=== PATIENT | male | born 1990 | race Caucasian/White ===

== ENCOUNTER → 2021-05-02 10:52 | Outpatient (BNVA) | payer MEDICAID, SELFPAY | PROVIDERS: Referring Provider Internal Medicine; Visit Provider Podiatrist Foot & Ankle Surgery | DX: M79.673 Pain in unspecified foot (principal); S92.412D Displaced fracture of proximal phalanx of left great toe, subsequent encounter for fracture with routine healing; X58.XXXD Exposure to other specified factors, subsequent encounter | CPT/HCPCS: 73630 ==

== ENCOUNTER → 2021-12-28 12:17 | Outpatient (BNVA) | payer MEDICAID, SELFPAY | PROVIDERS: Visit Provider Podiatrist Foot & Ankle Surgery | DX: L60.0 Ingrowing nail (principal); M79.671 Pain in right foot | CPT/HCPCS: 11750; A6219; A6446 ==

== ENCOUNTER → 2022-08-02 12:05 | Outpatient (BNVA) | payer MEDICAID, SELFPAY | PROVIDERS: PCP Nurse Practitioner Family; Visit Provider Nurse Practitioner Family | DX: E78.5 Hyperlipidemia, unspecified (principal) | CPT/HCPCS: 80053; 80061; 83036; 84443; 85025 ==

== ENCOUNTER → 2023-07-24 08:25 | Outpatient (BNVA) | payer MEDICARE, MEDICAID, SELFPAY | PROVIDERS: PCP Nurse Practitioner Family; Visit Provider Nurse Practitioner Family | DX: E78.5 Hyperlipidemia, unspecified (principal); J45.909 Unspecified asthma, uncomplicated; E11.9 Type 2 diabetes mellitus without complications | CPT/HCPCS: 80053; 80061; 85025 ==

== ENCOUNTER → 2024-06-06 11:52 | Outpatient (BNVA) | payer MEDICARE, MEDICAID, SELFPAY | PROVIDERS: PCP Nurse Practitioner Family; Visit Provider Nurse Practitioner Family | DX: K76.0 Fatty (change of) liver, not elsewhere classified (principal); E11.9 Type 2 diabetes mellitus without complications | CPT/HCPCS: 80053; 80061; 81000; 83036; 84443; 85025; 86705; 86706; 86709; 86803; 87340 ==

== ENCOUNTER 2024-06-19 08:42 | Outpatient (CLI) | payer MEDICARE, MEDICAID, SELFPAY ==
--- NOTE | 2024-06-19 09:00 | US_ITS ---
WS: [id number] RIGHT UPPER QUADRANT ULTRASOUND HISTORY: R79.89 - Other specified abnormal findings of blood chemi... COMPARISON: 05/29/2019 Liver: 16.0 cm in length. Limited evaluation of the liver due to body habitus. Increased echogenicity throughout the liver with hepatic steatosis. No mass identified or bile duct dilatation. Portal Vein: Normal hepatopetal flow with monophasic waveform. Gallbladder: Normally distended gallbladder with no stones or wall thickening. CBD: 0.3 cm, poorly visualized. Pancreas: Not visualized. Right kidney: 12.8 cm in length. Normal size and echogenicity. No hydronephrosis or mass. Aorta and IVC: Unremarkable abdominal aorta and IVC. No ascites. US/US liver [id number] IMPRESSION: 1. Difficult and limited RIGHT upper quadrant due to body habitus. 2. Gallbladder appears negative although limited visualization. 3. Poorly visualized liver is entirety. Hepatic steatosis noted.
== END 2024-06-19 08:43 | disposition home or self-care (01) ==
LOC: RAD 08:44
PROVIDERS: PCP Nurse Practitioner Family; Visit Provider Nurse Practitioner Family
DX: R79.89 Other specified abnormal findings of blood chemistry (principal); K76.0 Fatty (change of) liver, not elsewhere classified
CPT/HCPCS: 76705

== ENCOUNTER 2024-10-04 06:00 | Outpatient (RCR) | payer MEDICARE, MEDICAID, SELFPAY | END 2024-11-03 23:59 | disposition home or self-care (01) | LOC: TPT 06:00 | PROVIDERS: PCP Nurse Practitioner Family; Visit Provider Nurse Practitioner Family | DX: M25.561 Pain in right knee (principal) | CPT/HCPCS: 97161 ==

== ENCOUNTER 2024-11-04 05:00 | Outpatient (RCR) | payer MEDICARE, MEDICAID, SELFPAY | END 2024-12-03 23:59 | disposition home or self-care (01) | LOC: TPT 05:00 | PROVIDERS: PCP Nurse Practitioner Family; Visit Provider Nurse Practitioner Family | DX: M25.561 Pain in right knee (principal) | CPT/HCPCS: 97110 ==

== ENCOUNTER 2024-12-04 05:00 | Outpatient (RCR) | payer MEDICARE, MEDICAID, SELFPAY | END 2025-01-03 23:59 | disposition home or self-care (01) | LOC: TPT 05:00 | PROVIDERS: PCP Nurse Practitioner Family; Visit Provider Nurse Practitioner Family | DX: M25.561 Pain in right knee (principal) | CPT/HCPCS: 97110 ==

== ENCOUNTER 2025-01-07 14:01 | Outpatient (CLI) | payer OTHER, MEDICAID, SELFPAY ==
--- NOTE | 2025-01-07 14:30 | MR_ITS ---
WS: [id number] MRI RIGHT KNEE HISTORY: M25.561 - Pain in right knee COMPARISON: 10/07/2024 Anterior cruciate ligament: Partial tear of the superior ACL involving the posterior bundle. Posterior cruciate ligament: Cystic mass along the posterior surface of the PCL is likely a ganglion. Medial collateral ligament: Mild increased signal in the MCL. No tear. Posterior lateral corner structures: Intact. Medial menisci: Intact. Normal signal, size and shape. Lateral meniscus: Intact. Normal signal, size and shape. Extensor mechanism: Distal quadriceps tendon and patellar tendons are intact. Fluid and soft tissue: Small suprapatellar joint effusion. No Huber's cyst. Osseous and articular structures: Patellofemoral compartment: Mild narrowing of patellofemoral joint space. Mild chondromalacia involving the lateral facet. Subchondral cystic changes over the lateral patellar facet. Medial compartment: No significant narrowing. Mild thinning and fissuring of the cartilage along the weightbearing surface of the femoral condyle. No marrow edema. Lateral compartment: No significant narrowing. Very minimal fissuring of the cartilage. MR/MR knee RT wo con* [id number] IMPRESSION: 1. Suspect partial tear posterior bundle superior ACL. 2. PCL ganglion. 3. No meniscal tear. 4. Mild chondromalacia lateral patellar facet with subchondral cystic changes. 5. Very mild fissuring of the cartilage in the medial and lateral compartments . 6. Minimal MCL sprain.
== END 2025-01-07 14:02 | disposition home or self-care (01) ==
LOC: RAD 14:04
PROVIDERS: PCP Nurse Practitioner Family; Visit Provider Nurse Practitioner Family
DX: M22.41 Chondromalacia patellae, right knee (principal); R93.6 Abnormal findings on diagnostic imaging of limbs; M25.461 Effusion, right knee
CPT/HCPCS: 73721

== ENCOUNTER → 2025-01-27 08:00 | Outpatient (BNVA) | payer OTHER, MEDICAID, SELFPAY | PROVIDERS: PCP Nurse Practitioner Family; Visit Provider Orthopaedic Surgery | DX: S89.91XA Unspecified injury of right lower leg, initial encounter (principal); X58.XXXA Exposure to other specified factors, initial encounter; M25.561 Pain in right knee | CPT/HCPCS: 99204 ==

== ENCOUNTER → 2025-02-19 15:54 | Outpatient (BNVA) | payer OTHER, MEDICAID, SELFPAY | PROVIDERS: PCP Nurse Practitioner Family; Visit Provider Family Medicine | DX: Z01.818 Encounter for other preprocedural examination (principal) | CPT/HCPCS: 80053; 85025 ==

== ENCOUNTER 2025-03-03 08:05 | Day surgery (SDC) | payer OTHER, MEDICAID, SELFPAY ==
[2025-03-03] VITALS (12 sets, daily range): BP systolic 117–152; BP diastolic 57–98; PULSE 76–105; RESP 11–18; TEMP 36.1–36.7; O2SAT 97–100; BMI 40.4
--- NOTE | 2025-03-03 08:25 | ANES.PREANE2 ---
Pre-Anesthetic Assessment Height/Weight: Height 5 ft 11 in Weight 290 lb Preop Diagnosis: Knee pain Operation Date: 03/03/25 09:55 Proposed Procedures p RIGHT Knee Arthroscopy(Right) - Víctor Aguero MD s POSSIBLE Anterior ACL Reconstruction(Right) - Víctor Aguero MD Was Beta Liberty taken within 24 hours: N/A Was Clonidine taken within 24 hours: Yes Social No alcohol and No tobacco Exam alert, oriented x 3, clear to auscultation bilaterally and regular rate & rhythm Airway Submandibular: within normal limits Cervical ROM: within normal limits Mallampati: Class III Dentition: full Anesthetic Plan ASA status: 3 Anesthesia: General Other: No prior issues with anesthesia NPO since yesterday evening Patient comes from assisted, spoke with guardian on the phone who gave consent. Patient is ANO x 3 Type 2 diabetes, no insulin Patient is on clonidine for sleep GERD, controlled with Pepcid History of asthma Labs reviewed from 02/19/2025 acceptable for procedure Plan for general anesthesia Medications/Allergies Home Medications ?Medication ?Instructions ?Recorded ?Confirmed ?Last Taken ?Type quetiapine 400 mg tablet 400 mg PO BEDTIME 12/28/21 03/02/25 03/01/25 History topiramate 100 mg tablet 100 mg PO BID 12/28/21 03/02/25 03/02/25 History melatonin 10 mg capsule 10 mg PO .daily at 8pm 08/02/22 03/02/25 03/02/25 History ibuprofen 800 mg tablet 800 mg PO DAILY PRN pain #100 tabs 09/07/23 03/02/25 Unknown Rx acetaminophen 500 mg tablet 500 mg PO Q6H PRN fever or pain 02/26/24 03/02/25 Unknown Rx (Tylenol Extra Strength) #100 tabs albuterol sulfate 90 mcg/actuation See Rx Instructions .Route 02/26/24 03/02/25 Unknown Rx aerosol inhaler .COMPLEX #8.5 grams ondansetron 4 mg disintegrating 4 mg PO TID PRN nausea and 06/06/24 03/02/25 Unknown Rx tablet vomiting #30 tabs clonidine HCl 0.1 mg 0.1 mg PO BEDTIME 01/27/25 03/02/25 03/02/25 History tablet,extended release,12 hr hydroxyzine pamoate 25 mg capsule 25 mg PO TID PRN Anxiety 01/27/25 03/02/25 Unknown History trazodone 100 mg tablet 100 mg PO BEDTIME 01/27/25 03/02/25 03/02/25 History atorvastatin 40 mg tablet 40 mg PO DAILY 03/02/25 03/02/25 03/02/25 History docusate sodium 100 mg capsule 100 mg PO DAILY 03/02/25 03/02/25 03/02/25 History metformin 500 mg tablet,extended 500 mg PO BID 03/02/25 03/02/25 03/02/25 History release 24 hr Allergies Allergy/AdvReac Type Severity Reaction Status Date / Time No Known Allergies Allergy Verified 01/27/25 08:03 [facility] Anesthesia Medical History Asthma Head trauma Hyperlipidemia Fatty infiltration of liver Onychocryptosis Surgical History H/O anterior cruciate ligament surgery Social History Smoking and tobacco/nicotine status: never used tobacco/nicotine Quit status (tobacco/nicotine): not considering quitting Alcohol intake: former Substance/Drug Use: former Caregiver/support person: Yes Lives independently: No Household members: friend(s) Housing: House Marital status: Single Highest education level completed: High School Graduate service: No Current occupational status: unemployed
--- NOTE | 2025-03-03 09:21 | W.PM.OPSUD ---
Surgery/Procedure H&P Update DATE OF PROCEDURE: March 03, 2025 DATE H&P PERFORMED: 02/19/25 H&P UPDATE INFORMATION: I have reviewed H&P completed within last 30 days, I have examined patient prior to procedure and No changes to prior documentation PREOP DIAGNOSIS: Knee pain PLANNED PROCEDURE: Operation Date: 03/03/25 09:55 Proposed Procedures p RIGHT Knee Arthroscopy(Right) - Víctor Aguero MD s POSSIBLE Anterior ACL Reconstruction(Right) - Víctor Aguero MD
[2025-03-03] MEDS: ceFAZolin 2,000 mg SDV 2000 MG IVP (09:31)
[2025-03-03] MEDS: ceFAZolin 1,000 mg SDV 1000 MG IVP (09:31)
[2025-03-03] MEDS: BUPivacaine 0.5% INJ 30 mL INJECTION (11:52)
--- NOTE | 2025-03-03 11:53 | PM.OP ---
Operative Report Date of procedure: March 03, 2025 Surgeon: Víctor Aguero MD Procedure: Preoperative diagnosis: Internal derangement of the right knee Postoperative diagnosis: Torn anterior cruciate ligament right knee, torn anterior lateral meniscus Procedure: Diagnostic right knee arthroscopy with partial meniscectomy laterally, debridement of ACL stump, ACL reconstruction using autograft hamstrings Surgeon: Víctor Handley MD Tube Bending Machine Operator: ESA Guajardo's assistance was necessary with the positioning of the patient on the operative table, assistance during the procedure, wound closure, dressings placement and transfer the patient to the PACU Anesthesia: General EBL: 100 cc Indications: Rick is a 35-year-old white male who was goofing around approximately 3 to 4 months ago running and spending when he felt a pop in his right knee. Since that time he said continued pain problems and instability within his knee. Primary care had ordered an MRI which demonstrated a partial tear of his anterior cruciate ligament therefore the patient was referred to the orthopedic clinic for further evaluation and treatment. After initial evaluation is felt patient did have a injured ACL and therefore arthroscopic evaluation was offered to him. At that time a discussion was had with he and his band straightener about all options and the surgery including ACL reconstruction using his hamstring tendons. All risk benefits treatment alternatives were discussed with them and they are agreeable to this at this time. Procedure: After obtaining her consent patient was taken to the operating room placed on the operative table supine position general anesthetic administered. Once good anesthesia was achieved patient's right leg was placed in a leg berry after the foot the bed would been dropped. Left leg was padded appropriately. Right leg was then prepped and draped usual fashion. After surgical timeout standard anterior medial and lateral portals were made from an 11 blade. Camera cannulas placed through the lateral portal into her knee is undertaken. Posterior patella had some mild grade I chondromalacia over the central weightbearing surface. IT groove was clear. Medial gutter was clear. Medial compartment demonstrated again some softening of the cartilage on the distal femur but no breakdown of the articular cartilage. Meniscus was probed and found to be intact with no other abnormalities. Intercondylar notch was then explored finding that it was empty and there was no ACL except the stump off the tibial insertion. Lateral compartment demonstrated tearing of the anterior horn lateral meniscus this was debrided down to stable cartilage space with a mechanical shaver. There is a small amount of grade II chondromalacia of the central weightbearing surface of the lateral femoral condyle this too is debrided quickly. Attention was turned back to his intercondylar notch and using a thermal probe as well as mechanical shaver ACL stump was removed from the intercondylar notch. The notch had been found to be quite narrow. Therefore notchplasty was done at this point with a barrel bur to expose the notch more fully in order to place ACL graft. Cannulas were pulled out and set aside anterior approach to the pes anserinus was done with a #10 blade. Sharp dissection taken on down subcutaneous tissue electrocautery used hemostasis. Using Metzenbaum scissors and blunt sharp fashion dissection was taken on down to the gracilis and semitendinosus tendons could be identified and isolated. These were isolated with a right angle hemostat and then a Lupe drain placed around them to rowena them. By digital palpation as well as using Metzenbaum scissors in a blunt fashion there the fascial bands to these tendons were removed all the way up to the muscle bellies. Subsequently, in a stepwise fashion gracilis and semitendinosus were harvested. Excess muscle tissue was removed off the proximal ends of these. Whipstitch of 0 Vicryl was placed at the end of either these. #15 blade was then used to remove these from their insertion on the anterior tibia. Distal ends were freshened and also whipstitch of 0 Vicryl was placed through either these. Graft was then sized to size 9 grafting tube. It was then set aside on their moist cloth for later use. Cameras reinjured Troost to the knee and hematomas were evacuated. Subsequently a Arellano guide tibial aiming guide was then placed into the knee and position appropriately. Guidepin was placed within and confirmed to be in appropriate position. This is then reamed with a #[address] into the articular surface. Excess bone was removed with mechanical shaver. Also with small graspers. At this point size 10 femoral amine guide was placed on up into the posterior aspect the intercondylar notch and position appropriately. Guidepin placed up into the lateral femoral condyle in the posterior intercondylar notch. This was then visualized and confirmed to have adequate posterior wall. This was then reamed and a #9 reamer to a depth of 35 mm. Once this was done all guidepins and reamers were removed. Cannulas passed up to the tibial tunnel into the femoral tunnel and confirmed bony surfaces on all the chung of the tunnels. Attention was turned back towards the graft. Is placed in a perfect femoral locking device and tension. Watermark was placed on it. This is then passed up through the tibial tunnel and under direct visualization with the arthroscope directed in the femoral tunnel and implanted to the watermark. At this point locking device was engaged. Once this was achieved the guidepin was removed from the femoral side. Tension was pulled on the graft with the sutures and the ends demonstrating good fixation. Guidepin is placed up the tibial tunnel between the 2 sets the grafts. Tensioning handle was then applied to the sutures on the graft. Initial fixation and sleeve was placed up in the tibial tunnel between the 2 sets of the graft. Then a locking screw was placed on up this guidewire into the and tightened down until good fixation had been achieved. Direct visualization ACL demonstrated with intact Jackson's test under direct visualization demonstrates sturdy graft with no laxity. At this point excess graft was removed with #15 blade from the anterior tibia. Deep structures reapproximated with 0 Vicryl [id number] sutures. Subcutaneous tissue reapproximated with 0 Vicryl interrupted sutures. Skin was closed with a running Prolene suture of the harvest site and then [id number] for the portal sites. Wounds are clean and dry dressed with Xeroform gauze sterile gauze dressing Kerlix wrap and Zafar wrap for compression. Patient was waken transferred recovery in stable condition
[2025-03-03] MEDS: HYDROcodone-acetaminophen 5-325 mg Tablet 1 TAB PO (13:44)
--- NOTE | 2025-03-03 14:15 | ANE.PACU2 ---
Inpatient post-anesthesia follow up: Airway intact: Yes Vital signs: Temperature 98.0 F Pulse Rate 89 Respiratory Rate 16 Blood Pressure 140/86 Pulse Oximetry 99 Oxygen Delivery Me thod Room Air Oxygen Flow Rate Fraction of Inspir ed Oxygen Hydration adequate: Yes Nausea and vomiting: No Pain level: 1 Mental status: Baseline
== END 2025-03-03 14:15 | disposition home or self-care (01) ==
PROVIDERS: PCP Nurse Practitioner Family; Visit Provider Orthopaedic Surgery
PROC: (CPT 29870; principal; 2025-03-03 09:55)
PROC: (CPT 27407; 2025-03-03 09:55)
DX: M23.91 Unspecified internal derangement of right knee (principal); E11.9 Type 2 diabetes mellitus without complications; K21.9 Gastro-esophageal reflux disease without esophagitis; J45.909 Unspecified asthma, uncomplicated; Z79.84 Long term (current) use of oral hypoglycemic drugs; E78.5 Hyperlipidemia, unspecified
CPT/HCPCS: 27430; 29881; C1713; J0690; J1100; J1171; J1885; J2250; J2405; J2704; J3010; J3490; J7030; J9999

== ENCOUNTER 2025-03-06 05:00 | Outpatient (RCR) | payer OTHER, MEDICAID, SELFPAY | END 2025-04-05 23:59 | disposition home or self-care (01) | LOC: TPT 05:00 | PROVIDERS: PCP Nurse Practitioner Family; Visit Provider Orthopaedic Surgery | DX: Z98.890 Other specified postprocedural states (principal) | CPT/HCPCS: 97161 ==

== ENCOUNTER 2025-03-10 17:57 | Emergency (ER) | payer OTHER, MEDICAID, SELFPAY ==
[2025-03-10 18:07] VITALS: BP 122/73; PULSE 96; RESP 16; TEMP 36.9; O2SAT 100
--- NOTE | 2025-03-10 18:37 | USR_ITS ---
PROCEDURE INFORMATION: Exam: US Duplex Right Lower Extremity Veins, Limited Exam date and time: 03/10/2025 7:21 PM Age: 35 years old Clinical indication: Pain; Leg, lower; Prior surgery; Surgery date: 3-7 days post-operative; Surgery type: Right knee surgery for tendon repair; Additional info: Swelling TECHNIQUE: Imaging protocol: Real-time duplex ultrasound of the right extremity with 2-D chew scale, color Doppler flow and spectral waveform analysis including responses to compression and other maneuvers (when performed) with image documentation. Limited exam was focused on the right lower extremity veins. COMPARISON: MR knee RT wo con* [id number] 01/07/2025 2:43 PM FINDINGS: Right deep veins: All imaged right lower extremity deep veins demonstrate normal flow, compressibility, and/or augmentation without evidence of deep venous thrombosis. Superficial veins: Greater saphenous vein at the saphenofemoral junction is patent without thrombus. Soft tissues: Unremarkable. US/[place] [id number] IMPRESSION: No evidence of deep vein thrombosis.
--- NOTE | 2025-03-10 18:38 | ED_ITS ---
HPI - Extremity Problem General: Chief complaint: Extremity Injury, Lower Stated complaint: R knee pain, 1 week post op Time Seen by Provider: 03/10/25 18:30 History of Present Illness: Patient comes in with worsening swelling and pain in his right lower leg. States that he had ACL surgery a week ago. States he has been icing it and taking his pain medication but that the swelling and pain in his posterior right calf seems to be getting worse. On physical exam he does have significant swelling of his right lower leg with no pitting edema. No erythema or signs of infection, the surgical wounds are clean dry and intact. Will check ultrasound, treat pain with 30 mg of IM Toradol, and reassess. Related Data Home Medications ?Medication ?Instructions ?Recorded ?Confirmed quetiapine 400 mg tablet 400 mg PO BEDTIME 12/28/21 0 03/02/25 topiramate 100 mg tablet 100 mg PO BID 12/28/2103/02 melatonin 10 mg capsule 10 mg PO .daily at 8pm 08/0203/02/25 clonidine HCl 0.1 mg 0.1 mg PO BEDTIME 01/27/25 0 03/02/25 tablet,extended release,12 hr hydroxyzine pamoate 25 mg capsule 25 mg PO TID PRN Anx iety 01/27/25 03/03/25 trazodone 100 mg tablet 100 mg PO BEDTIME 01/27/25 0 03/02/25 atorvastatin 40 mg tablet 40 mg PO DAILY 03/02/2502/04 docusate sodium 100 mg capsule 100 mg PO DAILY 5 03/02/25 metformin 500 mg tablet,extended 500 mg PO BID 5 03/02/25 release 24 hr Previous Rx's ?Medication ?Instructions ?Recorded ibuprofen 800 mg tablet 800 mg PO DAILY PRN pain #10 0 tabs 09/07/23 acetaminophen 500 mg tablet 500 mg PO Q6H PRN fever or pain 02/26/24 (Tylenol Extra Strength) #100 tabs albuterol sulfate 90 mcg/actuation See Rx Instructions .Route 02/26/24 aerosol inhaler .COMPLEX #8.5 grams ondansetron 4 mg disintegrating 4 mg PO TID PRN nausea and 06/06/24 tablet vomiting #30 tabs hydrocodone 5 mg-acetaminophen 325 1 tab PO Q6H PRN pa in #30 tabs 03/03/25 mg tablet Allergies Allergy/AdvReac Type Severity Reaction Status Date / Time No Known Allergies Allergy Verified 01/27/25 08:03 Review of Systems Musc: Reports: other (Leg swelling, leg pain) [facility] PFSH: Medical History (Updated 03/10/25 @ 20:03 by Berhane Villanueva MD) Asthma Head trauma Hyperlipidemia Fatty infiltration of liver Onychocryptosis Surgical History H/O anterior cruciate ligament surgery Social History Smoking and tobacco/nicotine status: never used tobacco/nicotine Quit status (tobacco/nicotine): not considering quitting Alcohol intake: former Substance/Drug Use: former Caregiver/support person: Yes Lives independently: No Household members: friend(s) Housing: House Marital status: Single Highest education level completed: High School Graduate service: No Current occupational status: unemployed Physical Exam HENMT: COMMON NORMALS: normocephalic and atraumatic HEAD & SCALP: normocephalic and atraumatic Neck/C-Spine: COMMON NORMALS: full ROM and supple Resp: COMMON NORMALS: normal respiratory effort, No retractions and No use of accessory muscles Cardio: COMMON NORMALS: regular rate RATE: regular rate Extremity: NARRATIVE EXTREMITY EXAM: Swelling, bruising, tenderness to palpation of the right lower leg, surgical wounds are clean dry and intact, no erythema or signs of infection Course Vital Signs: Vital signs: Vital Signs Temperature 98.4 F 03/10/25 18:07 Pulse Rate 92 03/10/25 19:03 Respiratory Rate 16 03/10/25 18:07 Blood Pressure 131/91 03/10/25 19:03 Pulse Oximetry 98 03/10/25 19:03 Oxygen Delivery Me thod Room Air 03/10/25 19:03 MDM - Extremity (Nontraumatic) Medical Decision Making On reassessment I talked with the patient about his test results. His ultrasound shows no acute blood clot. I encouraged him to continue anti- inflammatories, elevation, ice. Will discharge at this time with precautions return for worsening or changing symptoms. All radiology interpretation(s) finalized by discharge Discharge Plan Discharge Patient Disposition: Home Clinical Impression: Post-op pain Condition: Stable Prescriptions: No Action quetiapine 400 mg tablet 400 mg PO BEDTIME topiramate 100 mg tablet 100 mg PO BID acetaminophen [Tylenol Extra Strength] 500 mg tablet 500 mg PO Q6H PRN (Reason: fever or pain) Qty: 100 5RF albuterol sulfate 90 mcg/actuation HFA aerosol inhaler See Rx Instructions .ROUTE .COMPLEX Qty: 8.5 5RF Dose Instruction: inhale 2 puffs BY MOUTH every 6 hours As Needed FOR shortness of breath OR wheezing Rx Instructions: inhale 2 puffs BY MOUTH every 6 hours As Needed FOR shortness of breath OR wheezing trazodone 100 mg tablet 100 mg PO BEDTIME hydroxyzine pamoate 25 mg capsule 25 mg PO TID PRN (Reason: Anxiety) clonidine HCl 0.1 mg tablet extended release 12 hr 0.1 mg PO BEDTIME melatonin 10 mg capsule 10 mg PO .daily at 8pm ondansetron 4 mg tablet,disintegrating 4 mg PO TID PRN (Reason: nausea and vomiting) Qty: 30 0RF ibuprofen 800 mg tablet 800 mg PO DAILY PRN (Reason: pain) Qty: 100 5RF atorvastatin 40 mg tablet 40 mg PO DAILY Rx Instructions: TAKE 1 TABLET BY MOUTH EVERY DAY docusate sodium 100 mg capsule 100 mg PO DAILY Rx Instructions: TAKE ONE CAPSULE BY MOUTH EVERY DAY metformin 500 mg tablet extended release 24 hr 500 mg PO BID Rx Instructions: TAKE ONE TABLET BY MOUTH TWICE DAILY hydrocodone-acetaminophen 5-325 mg tablet 1 tab PO Q6H PRN (Reason: pain) Qty: 30 0RF Discharge Orders: Discharge ED (Routine); Ordered 03/10/25 Ordered By: Berhane Villanueva Referrals: Tonya Kent FNP [Primary Care Provider, Family Practice] Patient Instructions: Opioid Safety, Pain Management, Patient Portal & Marty Instructions Print Language: Burundian Coding Level of Care Code ED Log Scaler for Wilder Pimentel
[2025-03-10 19:03] VITALS: BP 131/91; PULSE 92; O2SAT 98
[2025-03-10 20:16] VITALS: BP 117/80; PULSE 85; O2SAT 98
== END 2025-03-10 20:41 | disposition home or self-care (01) ==
PROVIDERS: Emergency Provider Emergency Medicine; PCP Nurse Practitioner Family
DX: G89.18 Other acute postprocedural pain (principal); Z79.84 Long term (current) use of oral hypoglycemic drugs; E78.5 Hyperlipidemia, unspecified
CPT/HCPCS: 93971; 96372; 99284; J1885

== ENCOUNTER → 2025-03-17 11:16 | Outpatient (BNVA) | payer OTHER, MEDICAID, SELFPAY | PROVIDERS: PCP Nurse Practitioner Family; Visit Provider Orthopaedic Surgery | DX: Z98.890 Other specified postprocedural states (principal) | CPT/HCPCS: 99024 ==

== ENCOUNTER 2025-04-06 05:00 | Outpatient (RCR) | payer OTHER, MEDICAID, SELFPAY | END 2025-05-05 23:59 | disposition home or self-care (01) | LOC: TPT 05:00 | PROVIDERS: PCP Nurse Practitioner Family; Visit Provider Orthopaedic Surgery | DX: S83.511D Sprain of anterior cruciate ligament of right knee, subsequent encounter (principal); X58.XXXD Exposure to other specified factors, subsequent encounter | CPT/HCPCS: 97110 ==

== ENCOUNTER → 2025-04-21 10:52 | Outpatient (BNVA) | payer OTHER, MEDICAID, SELFPAY | PROVIDERS: PCP Nurse Practitioner Family; Visit Provider Orthopaedic Surgery | DX: Z98.890 Other specified postprocedural states (principal) | CPT/HCPCS: 99024 ==

== ENCOUNTER → 2025-04-23 11:40 | Outpatient (BNVA) | payer OTHER, MEDICAID, SELFPAY | PROVIDERS: PCP Nurse Practitioner Family; Visit Provider Nurse Practitioner Family | DX: E11.9 Type 2 diabetes mellitus without complications (principal); K76.0 Fatty (change of) liver, not elsewhere classified | CPT/HCPCS: 80053; 80061; 83036; 85025 ==

== ENCOUNTER → 2025-04-29 13:52 | Outpatient (BNVA) | payer OTHER, MEDICAID, SELFPAY | PROVIDERS: PCP Nurse Practitioner Family; Visit Provider Nurse Practitioner Family | DX: M25.562 Pain in left knee (principal); M96.89 Other intraoperative and postprocedural complications and disorders of the musculoskeletal system; F17.290 Nicotine dependence, other tobacco product, uncomplicated | CPT/HCPCS: 73562 ==

== ENCOUNTER 2025-05-08 10:00 | Outpatient (RCR) | payer OTHER, MEDICAID, SELFPAY | END 2025-06-05 23:59 | disposition home or self-care (01) | LOC: TPT 10:00 | PROVIDERS: PCP Nurse Practitioner Family; Visit Provider Orthopaedic Surgery | DX: Z98.890 Other specified postprocedural states (principal) | CPT/HCPCS: 97110 ==

== ENCOUNTER 2025-06-01 10:23 | Outpatient (CLI) | payer OTHER, MEDICAID, SELFPAY ==
--- NOTE | 2025-06-01 11:00 | MR_ITS ---
WS: [id number] MRI LEFT KNEE NONCONTRAST TECHNIQUE: Axial PD, coronal PD fat sat, coronal PD, sagittal PD, and sagittal PD fat-sat images obtained. CLINICAL INFORMATION: R52 - Pain, unspecified COMPARISON: MRI 2007 FINDINGS: Evidence of prior ACL repair. Increased T2 signal in the ACL graft suspicious for partial tear. Recommend correlation for ACL integrity. Graft appears somewhat diminutive and irregular. Some images are degraded due to susceptibility artifact from hardware. PCL appears intact. Grade II chondromalacia patella. Medial and lateral patellar retinaculum appear intact. Small lobulated popliteal cyst measuring 1.9 x 0.8 cm. Medial and lateral collateral ligaments appear intact. Blunting of the medial meniscus likely due to prior partial meniscectomy. Lateral meniscus appears intact. Normal bone marrow signal in the femoral condyle and tibial plateau. MR/MR knee LT wo con* [id number] IMPRESSION: Some images degraded by susceptibility artifact from prior ACL toya nstruction 1. Prior ACL reconstruction. Increased T2 signal along the ACL graft which amara ears diminutive with irregularity. Recommend correlation for partial tear. Nor mal PCL. 2. Narrowing of the medial joint compartment presumably due to prior meniscect audrey. 3. Medial and lateral collateral ligaments appear intact. 4. Grade II chondromalacia patella. 5. Small lobulated popliteal cyst. Outbridge grading: grade II: blister-like swelling/fraying of articular cartila ge extending to surface
== END 2025-06-01 10:24 | disposition home or self-care (01) ==
LOC: RAD 10:24
PROVIDERS: PCP Nurse Practitioner Family; Visit Provider Nurse Practitioner Family
DX: R52 Pain, unspecified (principal)
CPT/HCPCS: 73721

== ENCOUNTER → 2025-06-02 09:49 | Outpatient (BNVA) | payer OTHER, MEDICAID, SELFPAY | PROVIDERS: PCP Nurse Practitioner Family; Visit Provider Orthopaedic Surgery | DX: Z98.890 Other specified postprocedural states (principal) | CPT/HCPCS: 99024 ==

== ENCOUNTER 2025-06-25 09:05 | Outpatient (RCR) | payer OTHER, MEDICAID, SELFPAY | END 2025-07-05 23:59 | disposition home or self-care (01) | LOC: TPT 09:05 | PROVIDERS: PCP Nurse Practitioner Family; Visit Provider Orthopaedic Surgery | DX: S83.511D Sprain of anterior cruciate ligament of right knee, subsequent encounter (principal); X58.XXXD Exposure to other specified factors, subsequent encounter | CPT/HCPCS: 97110 ==

== ENCOUNTER 2025-06-25 10:17 | Outpatient (RCR) | payer OTHER, MEDICAID, SELFPAY | END 2025-07-05 23:59 | disposition home or self-care (01) | LOC: TPT 10:17 | PROVIDERS: PCP Nurse Practitioner Family; Visit Provider Nurse Practitioner Family | DX: M25.562 Pain in left knee (principal); G89.29 Other chronic pain | CPT/HCPCS: 97161 ==

== ENCOUNTER 2025-07-16 09:58 | Outpatient (RCR) | payer OTHER, MEDICAID, SELFPAY | END 2025-08-05 23:59 | disposition home or self-care (01) | LOC: TPT 09:58 | PROVIDERS: PCP Nurse Practitioner Family; Visit Provider Orthopaedic Surgery | DX: S83.511D Sprain of anterior cruciate ligament of right knee, subsequent encounter (principal); X58.XXXD Exposure to other specified factors, subsequent encounter | CPT/HCPCS: 97110 ==

== ENCOUNTER → 2025-08-03 08:25 | Outpatient (BNVA) | payer OTHER, MEDICAID, SELFPAY | PROVIDERS: PCP Nurse Practitioner Family; Visit Provider Orthopaedic Surgery | DX: Z98.890 Other specified postprocedural states (principal) | CPT/HCPCS: 99213 ==